=== PATIENT | female | born 1960 | race Two or more races ===

== ENCOUNTER 2024-04-01 13:16 | Emergency (ER) | payer MEDICARE, MEDICAID ==
[~2024-04-01] VITALS: Ht 152.4 cm; Wt 80.0 kg
[2024-04-01] MEDS ORDERED: LOSA-382 PO (13:28)
[2024-04-01 13:35] LABS: COVID AG,FIA SOURCE NASAL SWAB
[2024-04-01 14:17] LABS: SARS-COV2 (COVID) ANTIGEN,FIA Negative (Negative)
[2024-04-01 14:19] LABS: INFLUENZA TYPE A NEGATIVE FOR TYPE A (NEGATIVE); INFLUENZA TYPE B NEGATIVE FOR TYPE B (NEGATIVE)
[2024-04-01] MEDS: ALBUTEROL SULFATE HFA 90 MCG/PUFF 8 GM INHALER IH ONE (15:59)
[2024-04-01 16:33] VITALS: PULSE 78; RESP 16; O2SAT 96
[2024-04-01 16:34] VITALS: PULSE 78; RESP 16; O2SAT 95
[2024-04-01] MEDS ORDERED: AZIT250T9 PO (16:36)
[2024-04-01] MEDS ORDERED: BENZ-227 PO (16:36)
[2024-04-01 16:48] VITALS: BP 126/75; PULSE 78; RESP 18; TEMP 98.4; O2SAT 99
== END 2024-04-01 16:50 | disposition home or self-care (01) ==
LOC: EMS 13:16
DX: J18.9 Pneumonia, unspecified organism (principal); I10 Essential (primary) hypertension; Z79.899 Other long term (current) drug therapy; Z90.49 Acquired absence of other specified parts of digestive tract; Z20.822 Contact with and (suspected) exposure to COVID-19
CPT/HCPCS: 99283; 71046; 87426; 87804; 94640; J3535